=== PATIENT | female | born 1990 | race American Indian/Alaskan Native ===

== ENCOUNTER 2016-07-26 23:33 | Emergency (ER) | payer SELFPAY ==
[2016-07-26 23:38] VITALS: BP 144/78
== END 2016-07-26 23:38 | disposition left against medical advice (07) ==
LOC: ED 23:33
DX: R06.00 Dyspnea, unspecified (principal); R05 Cough; J45.909 Unspecified asthma, uncomplicated; Z53.21 Procedure and treatment not carried out due to patient leaving prior to being seen by health care provider